=== PATIENT | female | born 1980 | race Caucasian/White ===

== ENCOUNTER 2019-02-14 19:22 | Emergency (ER) | payer MEDICAID ==
[~2019-02-14] VITALS: Ht 154.9 cm; Wt 81.8 kg
[2019-02-14 19:35] VITALS: BP 124/60
--- NOTE | 2019-02-14 19:38 | NUR ---
TO LOBBY A/W BED, AMBULATORY
--- NOTE | 2019-02-14 20:40 | NUR ---
PATIENT LEFT WITHOUT BEING SEEN BY DR. MURPHY. NO FURTHER CARE PROVIDED FOR PATIENT.
== END 2019-02-14 20:40 | disposition left against medical advice (07) ==
LOC: MED 19:22
DX: Z53.21 Procedure and treatment not carried out due to patient leaving prior to being seen by health care provider (principal)

== ENCOUNTER 2019-02-15 11:01 | Emergency (ER) | payer MEDICAID ==
[~2019-02-15] VITALS: Ht 172.7 cm; Wt 85.7 kg
[2019-02-15 11:06] VITALS: BP 136/82
--- NOTE | 2019-02-15 11:12 | NUR ---
PT AMBULATED TO ER BED 10
--- NOTE | 2019-02-15 11:13 | NUR ---
C/O FALL X 2 DAYS AGO. DENIES LOC. WAS BIBA YESTERDAY AND A CT WAS ORDERED. CT WAS NOT FINISHED BECAUSE PT WAS UNCOORPERATIVE AND LWBS. PATIENT NEEDS CT TO BE CLEARED FOR RESIDENTIAL. FAMILY PRESENT. PT VISABLY UPSET AND AGITATED. PMH- SPECIAL NEEDS
--- NOTE | 2019-02-15 11:30 | NUR ---
PT BEING TAKEN TO CT VIA WHEELCHAIR
--- NOTE | 2019-02-15 11:41 | NUR ---
PT YELLING, AGITATED, SCREAMING IN BED [address] ATTEMPT[address] PER ERMD PT OKAY TO SIT IN LOBBY IN ORDER TO CALM DOWN.
--- NOTE | 2019-02-15 12:10 | NUR ---
PT BROUGHT BACK INTO BED 10 AND GIVEN APPLE SAUCE. PT CONTINUES TO SCREAM AND YELL.
--- NOTE | 2019-02-15 12:21 | NUR ---
[employer] SPEAKING WITH FAMILY AND PT IN BED 10
--- NOTE | 2019-02-15 12:24 | NUR ---
PATIENT LEFT WITHOUT BEING SEEN BY DR. MARIE. NO FURTHER CARE PROVIDED FOR PATIENT.
== END 2019-02-15 12:24 | disposition left against medical advice (07) ==
LOC: MED 11:01
DX: Z51.89 Encounter for other specified aftercare (principal); Z53.21 Procedure and treatment not carried out due to patient leaving prior to being seen by health care provider

== ENCOUNTER 2019-03-26 15:56 | Emergency (ER) | payer MEDICAID ==
[~2019-03-26] VITALS: Ht 157.5 cm; Wt 88.5 kg
[2019-03-26 16:06] VITALS: BP 125/80
[2019-03-26 17:38] VITALS: BP 125/80
== END 2019-03-26 17:39 | disposition home or self-care (01) ==
LOC: MED 15:56
DX: S90.32XA Contusion of left foot, initial encounter (principal); Z88.5 Allergy status to narcotic agent; W19.XXXA Unspecified fall, initial encounter; Y93.89 Activity, other specified; Y92.89 Other specified places as the place of occurrence of the external cause; Y99.8 Other external cause status
CPT/HCPCS: 73610; 73630; 99283; Q0092

== ENCOUNTER 2024-01-21 16:40 | Emergency (ER) | payer OTHER, MEDICAID ==
[~2024-01-21] VITALS: Ht 154.9 cm; Wt 87.1 kg
[2024-01-21 18:05] VITALS: BP 129/77; PULSE 64; RESP 16; TEMP 98.4; O2SAT 98
[2024-01-21 20:25] VITALS: BP 134/79; PULSE 67; RESP 18; TEMP 98.2; O2SAT 99
== END 2024-01-21 21:04 | disposition home or self-care (01) ==
LOC: MED 16:40
DX: S00.83XA Contusion of other part of head, initial encounter (principal); Z88.5 Allergy status to narcotic agent; W18.39XA Other fall on same level, initial encounter; Y92.89 Other specified places as the place of occurrence of the external cause; Y93.89 Activity, other specified; Y99.8 Other external cause status
CPT/HCPCS: 70450; 99284